=== PATIENT | female | born 1970 | race Caucasian/White ===

== ENCOUNTER → 2019-07-04 10:39 | Outpatient (CLI) | payer OTHER, SELFPAY ==
--- NOTE | 2019-07-04 10:41 | CA_ITS ---
APPROVED REPORT Convention Services Director: CT Laterality: Bilateral Study Quality: Good Indications: cp, htn, abn ekg, gerd, smoking Risk Factors Hypertension: Doppler Spectral Velocity Analysis dICA (R) 69.90/37.00 cm/s ECA (L) 67.60/20.10 cm/s Jenniffer (R) 84.30/34.10 cm/s dICA (L) 74.90/33.70 cm/s pICA (R) 62.90/25.00 cm/s Jenniffer (L) 74.60/38.70 cm/s dCCA (R) 80.30/32.90 cm/s pICA (L) 61.50/28.70 cm/s pCCA (R) 83.40/27.10 cm/s dCCA (L) 66.10/24.50 cm/s Vert (R) 21.30/6.70 cm/s pCCA (L) 81.30/36.00 cm/s Vert (L) 28.00/9.20 cm/s Conclusion No increased velocities to suggest hemodynamically significant stenosis in either internal carotid artery. Electronically signed by : Bhupinder Kumar MD 07/05/2019 17:35:19
--- NOTE | 2019-07-04 10:41 | NM_ITS ---
APPROVED REPORT Exam: Nuclear Stress Test Indication: htn, hyperlipidemia, tob use, c.p., sob, palpitations, fatique Patient Location: Outpatient Stress Tech: Yessenia Nicolenkson [place] Tech:Snehal Rendon CLIFFPatricia RT(R)(N) Ht: 5 ft 6 in Wt: 209 lbs Bra Size: 44dd HR: 78 bpm BP: 115/79/ mmHg BSA: 2.04 m2 BMI: 33.7 History: htn, hyperlipidemia, tob use, c.p., sob, palpitations, fatique Procedure: Patient received a 0.4 mg of intravenous Lexiscan, resting heart rate 78 bpm, resting blood pressure 115/79 mmHg, with Lexiscan maximum heart rate achived was 123 bpm which is Less than 85 % of the maximum predicted heart rate and blood pressure was 112/76 mmHg. With Lexiscan, patient denied any complaint of chest pain. Electrocardiogram Resting electrocardiogram showed sinus rhythm, with Lexiscan there is less than 1.[address] segment depression noted from the baseline EKG. The EKG portion of the Lexiscan Myoview is nondiagnostic. Cardiac Stress and Resting SPECT Images: Cardiac Stress and Resting SPECT images were obtained using technetium 99m Myoview 29.4 mCi stress and 9.64 mCi at rest. Gated SPECT with analysis of segmental wall motion and calculation of the ejection fraction also done. Cardiac stress and resting SPECT images show uniform myocardial activity without segmental perfusion abnormality, computer derived ejection fraction is over 65% with no regional wall motion abnormality, right ventricle is normal size and contractility. Conclusion: 1. The EKG portion of the Lexiscan Myoview is nondiagnostic. 2. No scintigraphic evidence of reversible ischemia seen, computer derived ejection fraction is over 65% with no regional wall motion abnormality, right ventricle is normal size and contractility. 3. Normal Lexiscan Myoview study. Electronically signed by : Rodolfo Lopez, 07/04/2019 15:32:34
--- NOTE | 2019-07-04 10:41 | CA_ITS ---
APPROVED REPORT EXAM: Comprehensive 2D, Doppler, and color-flow Echocardiogram Recruiting Internship: Mayda Genao CRT Ht: 5 ft 6 in Wt: 214lbs BSA: 2.06 BP: 110/71 mmHg Indications: cp, abn ekg, gerd, dizziness 2D Dimensions LVOT 1.87 cm (M/F) 1.5-2.5 M-Mode Dimensions RVDd 1.63 cm (0.9-2.6) LVDd 4.11 cm (3.5-5.7) LVDs 3.11 cm (3.5-5.7) IVSd 2.06 cm (0.6-1.1) PWd 0.67 cm (0.6-1.1) EF (Teich) 48.90% FS 24.30% EDV (Teich) 74.70 mL ESV (Teich) 38.20 mL LV Diastology E/A Ratio 0.83 Mitral Valve MV A Velocity 71.00 (40-130 cm/s) Left Ventricle Left atrium is normal size, left ventricle is normal size, left ventricle wall thickness is upper limit of the normal, there is preserved left ventricular systolic function, visually estimated ejection fraction 55% with no regional wall motion abnormality. Grade 1 diastolic dysfunction seen without tissue Doppler evidence of raise left atrial pressure. Right Ventricle Right atrium and right ventricular normal size and contractility. Aortic Valve Aortic valve is grossly normal. There is no aortic stenosis aortic insufficiency. Mitral Valve Mitral valve is grossly normal, there is mild mitral regurgitation. Tricuspid Valve Tricuspid valve is grossly normal, there is mild tricuspid regurgitation. Pulmonic Valve Pulmonic valve is poorly visualized. Great Vessels Aortic root is normal size. Pericardium No significant pericardial effusion noted. Conclusion 1. Normal left ventricular size, preserved left ventricular systolic function, visually estimated ejection fraction 55% with no regional wall motion abnormality, diastolic parameters are consistent with grade 1 diastolic dysfunction without tissue Doppler evidence of raise left atrial pressure. 2. Mild mitral and tricuspid regurgitation. 3. No significant pericardial effusion noted. Electronically signed by : Rodolfo Lopez, 07/04/2019 15:35:28
--- NOTE | 2019-07-04 10:41 | CA_ITS ---
APPROVED REPORT Exam: Pharmacologic Technologist: skye barroso, Ht: 5 ft 5 in Wt: 209 lbs BSA: 2.02 m2 HR: 78 bpm BP: 115/79 mmHg Indications: CP, DIZZINESS Medical History Medical History: HTN, Hyperlipidemia Medications: Omeprazole,,,,, Alprazolam,,,,, Zolpidem,,,,, OxYCODONE,,,,, Cyclobenzaprine,,,,, Venlafaxine,,,,, Simvasatin,,,,, Allergies: NKA Cardiac Risk Factors: HTN, Hyperlipidemia Stress Test Details Test: LEXISCAN HR Resting HR: 85 bpm Max Heart Rate (APMHR): 171 bpm Max HR Achieved: 124 bpm Target HR (85% APMHR): 145 bpm % of APMHR: 72 Recovery HR: 93 bpm BP Resting BP: 115.0/79.0 mmHg Max BP: 127.0/79.0 mmHg Recovery BP: 124.0/82.0 mmHg ECG Clinical Exercise duration: 04:31 min Highest Stage Achieved: Stress ECG Conclusion DURING INFUSION OF LEXISCAN PATIENT HAD NO CHEST PAIN. NO ARRHYTHMIAS/ECTOPY. <1.5 ST SEGMENT CHANGES. NON-DIAGNOSTIC TEST. Electronically signed by : Rodolfo Lopez, 07/04/2019 14:44:12
== END ==
PROVIDERS: PCP Family Medicine; Visit Provider Urology
DX: R55 Syncope and collapse (principal); R42 Dizziness and giddiness; R07.9 Chest pain, unspecified; R06.02 Shortness of breath; R07.89 Other chest pain; I10 Essential (primary) hypertension; F17.200 Nicotine dependence, unspecified, uncomplicated
CPT/HCPCS: 78452; 93017; 93306; 93880; A9502; J2785

== ENCOUNTER 2019-09-16 10:12 | Day surgery (SDC) | payer OTHER, SELFPAY ==
[2019-09-16 10:27] VITALS: BMI 35.0
[2019-09-16 10:45] VITALS: BP 99/68; PULSE 88; RESP 16; TEMP 36.8; O2SAT 97
[2019-09-16 10:52] VITALS: BP 99/68; PULSE 86; RESP 16; TEMP 36.8; O2SAT 97
[2019-09-16 10:54] VITALS: PULSE 88
[2019-09-16 11:20] VITALS: BP 98/67; PULSE 71; RESP 20; TEMP 36.1
[2019-09-16 11:32] VITALS: BP 98/66; PULSE 73; RESP 20; O2SAT 98
--- NOTE | 2019-12-27 13:16 | P.PCN_ITS ---
[facility] Procedure Note Procedure Note:: Patient was brought to the cardiac Senior Assistant Manager on 09/16/2019 as an outpatient for implantable loop recorder removal. After informed consent was obtained, 1% lidocaine was used to anesthetize the area over the loop recorder. Surgical #10 blade was used to dissect down to the recorder with forceps used to secure and subsequently withdraw the device. Steri-Strips and Tegaderm were applied over the incision and patient tolerated the procedure without complications. She will follow-up in 1 week for postop visit.
== END 2019-09-16 11:40 | disposition home or self-care (01) ==
LOC: CATHLAB 10:13
PROVIDERS: PCP Family Medicine; Visit Provider Internal Medicine
DX: Z45.09 Encounter for adjustment and management of other cardiac device (principal)
CPT/HCPCS: 33286; 99152